=== PATIENT | female | born 1960 | race Caucasian/White ===

== ENCOUNTER 2019-02-18 21:04 | Inpatient (IN) | payer OTHER, MEDICAID ==
[~2019-02-18] VITALS: Ht 152.4 cm; Wt 51.3 kg
[2019-02-18 21:16] VITALS: BP_SYST 127
[2019-02-18 22:03] LABS: BASOPHILS % (AUTO) 0.1 % (0.0-2.0); EOSINOPHILS % (AUTO) 0.4 % (0.0-4.0); HEMATOCRIT 36.3 % (36-48); HEMOGLOBIN 11.9 g/dL (12.0-16.0); LYMPHOCYTES # (AUTO) 0.4 K/uL (1.0-5.5); LYMPHOCYTES % (AUTO) 6.2 % (20.5-51.5); MEAN CORPUSCULAR HEMOGLOBIN 28 pg (27-31); MEAN CORPUSCULAR HGB CONC 33 % (32-36); MEAN CORPUSCULAR VOLUME 85 fL (79.0-98.0); MONOCYTES # (AUTO) 0.3 K/uL (0.0-1.0); MONOCYTES % (AUTO) 4.5 % (1.7-9.3); NEUTROPHILS # (AUTO) 5.2 K/uL (1.8-7.7); NEUTROPHILS % (AUTO) 88.8 % (40.0-70.0); RED CELL DISTRIBUTION WIDTH 16.4 % (9.0-15.0); WHITE BLOOD COUNT (AUTO) 5.8 K/uL (4.8-10.8)
[2019-02-18 22:10] LABS: CALCIUM 8.9 mg/dL (8.4-11.0); CREATININE 0.71 mg/dL (0.55-1.30); POTASSIUM 4.1 mmol/L (3.5-5.1)
[2019-02-18 22:15] LABS: ALBUMIN 2.9 g/dL (3.4-4.8)
[2019-02-18 22:19] LABS: PLATELET COUNT (AUTO) 40 K/uL (130-430)
[2019-02-18] MEDS ORDERED: ONDANSETRON HCL 4 MG/2 ML VIAL IVP ONE (23:15)
[2019-02-18] MEDS ORDERED: NACL 0.9% 1,000 ML IV ONE (23:15)
[2019-02-18] MEDS ORDERED: LACTULOSE 20 GM/30 ML UDC PO ONE (23:15)
[2019-02-18] MEDS ORDERED: MORPHINE 4 MG/ML INJ. SYRINGE IVP ONE (23:15)
[2019-02-18] MEDS ORDERED: FURO-150 PO (23:42)
[2019-02-18] MEDS ORDERED: VITD2000 PO (23:42)
[2019-02-18] MEDS ORDERED: ONDA8TAB60 PO (23:42)
[2019-02-18] MEDS ORDERED: RIFA200T10 PO (23:42)
[2019-02-18] MEDS ORDERED: SPIR50TA5 PO (23:42)
[2019-02-18] MEDS ORDERED: PRO40 PO (23:42)
[2019-02-19] MEDS ORDERED: METOCLOPRAMIDE HCL 10 MG/2 ML VIAL IVP ONE
[2019-02-19] MEDS ORDERED: ACETAMINOPHEN 325 MG TABLET PO PRN (01:00)
[2019-02-19] MEDS ORDERED: ONDANSETRON HCL 4 MG/2 ML VIAL IVP PRN (01:00)
[2019-02-19 01:20] VITALS: BP_SYST 124
[2019-02-19] MEDS: 0.45% NACL 1,000 ML IV SCH ×2 (04:42→12:05)
[2019-02-19] MEDS ORDERED: LACTULOSE 20 GM/30 ML UDC PO ONE (06:00)
[2019-02-19 07:24] LABS: CALCIUM 8.1 mg/dL (8.4-11.0); CREATININE 0.54 mg/dL (0.55-1.30); POTASSIUM 3.7 mmol/L (3.5-5.1)
[2019-02-19 07:27] LABS: ALBUMIN 2.4 g/dL (3.4-4.8); TOTAL BILIRUBIN 1.7 mg/dL (0.0-1.0)
[2019-02-19 08:00] VITALS: BP_SYST 111
[2019-02-19] MEDS: RIFAXIMIN 550 MG TABLET PO SCH ×2 (09:38→20:35)
[2019-02-19] MEDS: SPIRONOLACTONE 25 MG TABLET (ALDACTONE) PO SCH (09:39)
[2019-02-19] MEDS: PANTOPRAZOLE SODIUM 40 MG/VIAL (PROTONIX) IVP SCH (09:39)
[2019-02-19] MEDS: FUROSEMIDE 20 MG TABLET PO SCH ×2 (09:39→20:35)
[2019-02-19] MEDS: cefTRIAXone 1 GM in D5W 50 ML IV SCH (10:48)
[2019-02-19 11:21] VITALS: BP_SYST 109
[2019-02-19] MEDS: LACTULOSE 20 GM/30 ML UDC PO SCH ×3 (12:04→23:20)
[2019-02-19 15:37] VITALS: BP_SYST 115
[2019-02-19 20:00] VITALS: BP_SYST 122
[2019-02-19 23:42] VITALS: BP_SYST 108
[2019-02-20 04:41] LABS: BILIRUBIN,URINE NEGATIVE (NEGATIVE); BLOOD, URINE 3+ (NEGATIVE); CLARITY/URINE CLEAR (CLEAR); COLOR,URINE YELLOW (YELLOW); GLUCOSE,URINE NEGATIVE (NEGATIVE); KETONES,URINE NEGATIVE (NEGATIVE); LEUKOCYTE ESTERASE ,URINE NEGATIVE (NEGATIVE); NITRITE, URINE NEGATIVE (NEGATIVE); PH,URINE 5.5 (5.0-8.0); PROTEIN URINE NEGATIVE (NEGATIVE); UROBILINOGEN,URINE 0.2 (0.2-1.0)
[2019-02-20 04:46] LABS: BACTERIA,URINE FEW /HPF (None Seen); WBC,URINE 0-3 /HPF (0-3)
[2019-02-20] MEDS: 0.45% NACL 1,000 ML IV SCH ×2 (05:22→10:00)
[2019-02-20] MEDS: LACTULOSE 20 GM/30 ML UDC PO SCH ×2 (05:23→12:32)
[2019-02-20 06:43] LABS: BASOPHILS % (AUTO) 0.5 % (0.0-2.0); EOSINOPHILS # (AUTO) 0.2 K/uL (0.0-0.4); EOSINOPHILS % (AUTO) 9.5 % (0.0-4.0); HEMATOCRIT 29.3 % (36-48); HEMOGLOBIN 9.8 g/dL (12.0-16.0); LYMPHOCYTES # (AUTO) 0.4 K/uL (1.0-5.5); LYMPHOCYTES % (AUTO) 18.6 % (20.5-51.5); MEAN CORPUSCULAR HEMOGLOBIN 28 pg (27-31); MEAN CORPUSCULAR HGB CONC 33 % (32-36); MEAN CORPUSCULAR VOLUME 84 fL (79.0-98.0); MONOCYTES # (AUTO) 0.2 K/uL (0.0-1.0); MONOCYTES % (AUTO) 7.5 % (1.7-9.3); NEUTROPHILS # (AUTO) 1.3 K/uL (1.8-7.7); NEUTROPHILS % (AUTO) 63.9 % (40.0-70.0)
[2019-02-20 06:53] LABS: ALBUMIN 2.2 g/dL (3.4-4.8); CREATININE 0.65 mg/dL (0.55-1.30); POTASSIUM 3.4 mmol/L (3.5-5.1); TOTAL BILIRUBIN 1.2 mg/dL (0.0-1.0)
[2019-02-20 07:02] LABS: INR 1.4 (0.8-1.2); PROTHROMBIN TIME 13.8 SECS (9.5-12.5)
[2019-02-20 07:32] LABS: PLATELET COUNT (AUTO) 27 K/uL (130-430)
[2019-02-20 08:00] VITALS: BP_SYST 103
[2019-02-20] MEDS ORDERED: POTASSIUM CHLORIDE 20 MEQ TAB.PRT.SR PO ONE (09:45)
[2019-02-20] MEDS: PANTOPRAZOLE SODIUM 40 MG/VIAL (PROTONIX) IVP SCH (09:48)
[2019-02-20] MEDS: SPIRONOLACTONE 25 MG TABLET (ALDACTONE) PO SCH (09:49)
[2019-02-20] MEDS: cefTRIAXone 1 GM in D5W 50 ML IV SCH (09:50)
[2019-02-20] MEDS: FUROSEMIDE 20 MG TABLET PO SCH (09:50)
[2019-02-20] MEDS: RIFAXIMIN 550 MG TABLET PO SCH (09:50)
[2019-02-20 11:23] VITALS: BP_SYST 113
[2019-02-20] MEDS ORDERED: MULT-1089 PO (12:16)
[2019-02-20] MEDS ORDERED: FURO-150 PO (12:16)
[2019-02-20] MEDS ORDERED: LACT10PA5 PO (12:16)
[2019-02-20] MEDS ORDERED: SPIR25TA PO (12:17)
[2019-02-20] MEDS ORDERED: RIFA550T5 PO (12:18)
[2019-02-20 15:03] VITALS: BP_SYST 103
[2019-02-20 15:35] VITALS: BP_SYST 120
== END 2019-02-20 15:45 | disposition home or self-care (01) | DRG 441 ==
LOC: SED 21:04 → STU 02-19 01:12 → SMU 02-20 10:32 → STU 02-20 12:00
PROVIDERS: ADMIT Internal Medicine; ATTEND Internal Medicine
DX: K72.90 Hepatic failure, unspecified without coma (principal); R65.11 Systemic inflammatory response syndrome (SIRS) of non-infectious origin with acute organ dysfunction; N39.0 Urinary tract infection, site not specified; R18.8 Other ascites; E44.0 Moderate protein-calorie malnutrition; K74.60 Unspecified cirrhosis of liver; D69.6 Thrombocytopenia, unspecified; D64.9 Anemia, unspecified; B19.20 Unspecified viral hepatitis C without hepatic coma; Z91.14 Patient's other noncompliance with medication regimen; Z98.891 History of uterine scar from previous surgery
CPT/HCPCS: 36415; 76700-TC; 80053; 80061; 81000-TC; 82105; 82140-TC; 83690-TC; 85025; 85610-TC; 96361; 96374; 96375; 99291; C9113; G0378; J0696; J2270; J2405; J2765; J7030; J7060

== ENCOUNTER 2019-04-09 18:40 | Inpatient (IN) | payer OTHER, MEDICAID ==
[~2019-04-09] VITALS: Ht 152.4 cm; Wt 51.9 kg
[~2019-04-09 18:40] MED LIST: FURO-150 PO; LACT10PA5 PO; MULT-1089 PO; RIFA550T5 PO; SPIR25TA PO
[2019-04-09 18:44] VITALS: BP_SYST 123
[2019-04-09 19:35] LABS: HEMATOCRIT 34.4 % (36-48); HEMOGLOBIN 11.6 g/dL (12.0-16.0); MEAN CORPUSCULAR HEMOGLOBIN 29 pg (27-31); MEAN CORPUSCULAR HGB CONC 34 % (32-36); MEAN CORPUSCULAR VOLUME 87 fL (79.0-98.0); RED BLOOD CELL COUNT(AUTO) 3.94 MIL/uL (4.2-6.2); WHITE BLOOD COUNT (AUTO) 2.7 K/uL (4.8-10.8)
[2019-04-09 19:40] LABS: ANION GAP 10 (5-15); CALCIUM 8.4 mg/dL (8.4-11.0); CHLORIDE 109 mmol/L (98-107); CREATININE 0.56 mg/dL (0.55-1.30); GLUCOSE 110 mg/dL (70-99); POTASSIUM 4.2 mmol/L (3.5-5.1); SODIUM SERUM 143 mmol/L (136-145); UREA NITROGEN, BLOOD 16 mg/dL (8-21)
[2019-04-09 19:41] LABS: GFR AFRICAN AMERICAN 142 mL/min (>90)
[2019-04-09 19:45] LABS: INR 1.3 (0.8-1.2); PROTHROMBIN TIME 13.1 SECS (9.5-12.5)
[2019-04-09 19:49] LABS: ALANINE AMINOTRANSFERASE 32 U/L (12-78); ALBUMIN 2.7 g/dL (3.4-4.8); ASPARTATE AMINOTRANSFERASE 38 U/L (10-37); TOTAL BILIRUBIN 1.2 mg/dL (0.0-1.0)
[2019-04-09 19:54] LABS: PLATELET COUNT (AUTO) 34 K/uL (130-430)
[2019-04-09 19:56] LABS: BAND % (MANUAL) 0 % (0-6); BASOPHILS % (MANUAL) 0 % (0-2); EOSINOPHILS % (MANUAL) 6 % (0-7); LYMPHOCYTES % (MANUAL) 19 % (20-46); MONOCYTES % (MANUAL) 7 % (0-11)
[2019-04-09] MEDS ORDERED: MECLIZINE HCL 25 MG TABLET (ANITVERT) PO ONE (20:00)
[2019-04-09] MEDS ORDERED: LACTULOSE 20 GM/30 ML UDC PO ONE (21:00)
[2019-04-09] MEDS ORDERED: ONDA4TAB5 PO (21:41)
[2019-04-09] MEDS ORDERED: PRO40 PO (21:41)
[2019-04-09] MEDS ORDERED: FERR140T2 PO (21:41)
[2019-04-09] MEDS ORDERED: VITD2000 PO (21:42)
[2019-04-09] MEDS ORDERED: MULT-1089 PO (21:46)
[2019-04-09] MEDS ORDERED: LACT10PA5 PO (21:46)
[2019-04-09] MEDS: LACTULOSE 20 GM/30 ML UDC PO SCH (22:16)
[2019-04-09 22:18] VITALS: BP_SYST 128
[2019-04-10] MEDS ORDERED: ONDANSETRON HCL 4 MG/2 ML VIAL IVP PRN
[2019-04-10] MEDS ORDERED: ACETAMINOPHEN 325 MG TABLET PO PRN
[2019-04-10] MEDS ORDERED: ALBUTEROL SULFATE 0.083% 2.5 MG/3 ML VIAL.NEB INH PRN
[2019-04-10] MEDS: LACTULOSE 20 GM/30 ML UDC PO SCH ×6 (02:57→21:15)
[2019-04-10 04:44] LABS: ALBUMIN 2.7 g/dL (3.4-4.8); CALCIUM 8.6 mg/dL (8.4-11.0); CREATININE 0.73 mg/dL (0.55-1.30); TOTAL BILIRUBIN 1.5 mg/dL (0.0-1.0)
[2019-04-10 04:53] LABS: BASOPHILS % (AUTO) 0.7 % (0.0-2.0); EOSINOPHILS # (AUTO) 0.1 K/uL (0.0-0.4); EOSINOPHILS % (AUTO) 5.9 % (0.0-4.0); HEMATOCRIT 33.6 % (36-48); HEMOGLOBIN 11.5 g/dL (12.0-16.0); LYMPHOCYTES # (AUTO) 0.3 K/uL (1.0-5.5); LYMPHOCYTES % (AUTO) 15.6 % (20.5-51.5); MEAN CORPUSCULAR HEMOGLOBIN 30 pg (27-31); MEAN CORPUSCULAR HGB CONC 34 % (32-36); MEAN CORPUSCULAR VOLUME 87 fL (79.0-98.0); MONOCYTES # (AUTO) 0.2 K/uL (0.0-1.0); MONOCYTES % (AUTO) 7.4 % (1.7-9.3); NEUTROPHILS # (AUTO) 1.5 K/uL (1.8-7.7); NEUTROPHILS % (AUTO) 70.4 % (40.0-70.0); RED BLOOD CELL COUNT(AUTO) 3.86 MIL/uL (4.2-6.2); WHITE BLOOD COUNT (AUTO) 2.1 K/uL (4.8-10.8)
[2019-04-10 05:02] LABS: PLATELET COUNT (AUTO) 29 K/uL (130-430)
[2019-04-10 05:16] VITALS: BP_SYST 128
[2019-04-10 07:33] VITALS: BP_SYST 113
[2019-04-10 10:55] VITALS: BP_SYST 129
[2019-04-10] MEDS ORDERED: ONDANSETRON 4 MG ODT TAB PO PRN (11:00)
[2019-04-10 15:12] VITALS: BP_SYST 110
[2019-04-10 19:00] VITALS: BP_SYST 125
[2019-04-10 20:00] VITALS: BP_SYST 125
[2019-04-10] MEDS: RIFAXIMIN 550 MG TABLET PO SCH (21:15)
[2019-04-10] MEDS: FERROUS SULFATE 140 MG TABLET.ER PO SCH (21:15)
[2019-04-11 00:14] VITALS: BP_SYST 120
[2019-04-11] MEDS: LACTULOSE 20 GM/30 ML UDC PO SCH ×6 (03:00→22:31)
[2019-04-11 06:06] LABS: ALBUMIN 2.6 g/dL (3.4-4.8); CALCIUM 8.4 mg/dL (8.4-11.0); CREATININE 0.6 mg/dL (0.55-1.30); POTASSIUM 3.9 mmol/L (3.5-5.1); TOTAL BILIRUBIN 1.3 mg/dL (0.0-1.0)
[2019-04-11 07:39] LABS: HEMATOCRIT 33.4 % (36-48); HEMOGLOBIN 11.3 g/dL (12.0-16.0); MEAN CORPUSCULAR HEMOGLOBIN 30 pg (27-31); MEAN CORPUSCULAR HGB CONC 34 % (32-36); MEAN CORPUSCULAR VOLUME 88 fL (79.0-98.0); RED BLOOD CELL COUNT(AUTO) 3.79 MIL/uL (4.2-6.2); RED CELL DISTRIBUTION WIDTH 18.1 % (9.0-15.0)
[2019-04-11 08:18] LABS: WHITE BLOOD COUNT (AUTO) 1.9 K/uL (4.8-10.8)
[2019-04-11 08:19] LABS: PLATELET COUNT (AUTO) 34 K/uL (130-430)
[2019-04-11 09:53] LABS: ATYPICAL LYMPHOCYTES % 0 % (0-0); BAND % (MANUAL) 2 % (0-6); BASOPHILS % (MANUAL) 1 % (0-2); EOSINOPHILS % (MANUAL) 8 % (0-7); LYMPHOCYTES % (MANUAL) 30 % (20-46); MONOCYTES % (MANUAL) 6 % (0-11)
[2019-04-11] MEDS: PANTOPRAZOLE SODIUM 40 MG TAB PO SCH (10:00)
[2019-04-11] MEDS: SPIRONOLACTONE 25 MG TABLET (ALDACTONE) PO SCH (10:00)
[2019-04-11] MEDS: MULTIVITAMINS TAB 1 TABLET PO SCH (10:01)
[2019-04-11] MEDS: FUROSEMIDE 20 MG TABLET PO SCH (10:01)
[2019-04-11] MEDS: CHOLECALCIFEROL (VITAMIN D3) 2,000 UNIT TABLET PO SCH (10:02)
[2019-04-11] MEDS: RIFAXIMIN 550 MG TABLET PO SCH ×2 (10:02→21:07)
[2019-04-11] MEDS: FERROUS SULFATE 140 MG TABLET.ER PO SCH ×2 (10:09→21:07)
[2019-04-11 11:15] VITALS: BP_SYST 115
[2019-04-11 15:04] VITALS: BP_SYST 111
[2019-04-11 21:04] VITALS: BP_SYST 100
[2019-04-12 00:55] VITALS: BP_SYST 109
[2019-04-12] MEDS: LACTULOSE 20 GM/30 ML UDC PO SCH ×3 (02:40→11:59)
[2019-04-12 08:00] VITALS: BP_SYST 118
[2019-04-12] MEDS: FUROSEMIDE 20 MG TABLET PO SCH (09:44)
[2019-04-12] MEDS: SPIRONOLACTONE 25 MG TABLET (ALDACTONE) PO SCH (09:44)
[2019-04-12] MEDS: FERROUS SULFATE 140 MG TABLET.ER PO SCH (09:44)
[2019-04-12] MEDS: MULTIVITAMINS TAB 1 TABLET PO SCH (09:44)
[2019-04-12] MEDS: PANTOPRAZOLE SODIUM 40 MG TAB PO SCH (09:44)
[2019-04-12] MEDS: RIFAXIMIN 550 MG TABLET PO SCH (09:45)
[2019-04-12] MEDS: CHOLECALCIFEROL (VITAMIN D3) 2,000 UNIT TABLET PO SCH (09:45)
[2019-04-12 11:26] LABS: BASOPHILS % (AUTO) 0.6 % (0.0-2.0); EOSINOPHILS # (AUTO) 0.2 K/uL (0.0-0.4); EOSINOPHILS % (AUTO) 6.9 % (0.0-4.0); HEMATOCRIT 38.3 % (36-48); HEMOGLOBIN 12.7 g/dL (12.0-16.0); LYMPHOCYTES # (AUTO) 0.4 K/uL (1.0-5.5); LYMPHOCYTES % (AUTO) 16.7 % (20.5-51.5); MEAN CORPUSCULAR HEMOGLOBIN 29 pg (27-31); MEAN CORPUSCULAR HGB CONC 33 % (32-36); MEAN CORPUSCULAR VOLUME 89 fL (79.0-98.0); MONOCYTES # (AUTO) 0.2 K/uL (0.0-1.0); MONOCYTES % (AUTO) 6.3 % (1.7-9.3); NEUTROPHILS # (AUTO) 1.8 K/uL (1.8-7.7); NEUTROPHILS % (AUTO) 69.5 % (40.0-70.0); RED BLOOD CELL COUNT(AUTO) 4.33 MIL/uL (4.2-6.2); RED CELL DISTRIBUTION WIDTH 17.9 % (9.0-15.0)
[2019-04-12 12:04] LABS: PLATELET COUNT (AUTO) 32 K/uL (130-430)
[2019-04-12 12:05] LABS: WHITE BLOOD COUNT (AUTO) 2.5 K/uL (4.8-10.8)
[2019-04-12 13:22] VITALS: BP_SYST 118
== END 2019-04-12 13:50 | disposition home or self-care (01) | DRG 441 ==
LOC: SED 18:40 → STU 21:31 → SMU 04-10 11:05
PROVIDERS: ADMIT Internal Medicine; ATTEND Internal Medicine
DX: K72.90 Hepatic failure, unspecified without coma (principal); E43 Unspecified severe protein-calorie malnutrition; D61.818 Other pancytopenia; K74.60 Unspecified cirrhosis of liver; F10.10 Alcohol abuse, uncomplicated; Z79.899 Other long term (current) drug therapy
CPT/HCPCS: 36415; 70450-TC; 71045; 76700-TC; 80053; 82140-TC; 84484; 85007; 85025; 85027; 85610-TC; 85730-TC; 93005; 99285; G0378; J8597; Q0162

== ENCOUNTER 2019-08-06 02:18 | Inpatient (IN) | payer OTHER, MEDICAID ==
[~2019-08-06] VITALS: Ht 152.4 cm; Wt 62.6 kg
[~2019-08-06 02:18] MED LIST changes: +FERR140T2 PO; +ONDA4TAB5 PO; +PRO40 PO; +VITD2000 PO
[2019-08-06 02:30] VITALS: BP_SYST 129
[2019-08-06] MEDS ORDERED: SPIR50TA5 PO (02:40)
[2019-08-06] MEDS ORDERED: PROP10TA10 PO (02:40)
[2019-08-06] MEDS ORDERED: NACL 0.9% 1,000 ML IV ONE (02:53)
[2019-08-06 03:36] LABS: BILIRUBIN,URINE NEGATIVE (NEGATIVE); BLOOD, URINE 3+ (NEGATIVE); CLARITY/URINE CLEAR (CLEAR); COLOR,URINE YELLOW (YELLOW); GLUCOSE,URINE NEGATIVE (NEGATIVE); KETONES,URINE TRACE (NEGATIVE); LEUKOCYTE ESTERASE ,URINE NEGATIVE (NEGATIVE); NITRITE, URINE NEGATIVE (NEGATIVE); PROTEIN URINE NEGATIVE (NEGATIVE)
[2019-08-06 03:37] LABS: EOSINOPHILS # (AUTO) 0.2 K/uL (0.0-0.4); LYMPHOCYTES # (AUTO) 0.5 K/uL (1.0-5.5); MEAN CORPUSCULAR HEMOGLOBIN 30 pg (27-31); MONOCYTES # (AUTO) 0.1 K/uL (0.0-1.0); NEUTROPHILS # (AUTO) 1.1 K/uL (1.8-7.7)
[2019-08-06 03:43] LABS: EOSINOPHILS % (AUTO) 9.2 % (0.0-4.0); HEMATOCRIT 38.3 % (36-48); LYMPHOCYTES % (AUTO) 23.5 % (20.5-51.5); MEAN CORPUSCULAR HGB CONC 34 % (32-36); MEAN CORPUSCULAR VOLUME 89 fL (79.0-98.0); NEUTROPHILS % (AUTO) 59.3 % (40.0-70.0)
[2019-08-06 03:46] LABS: BACTERIA,URINE FEW /HPF (None Seen); RBC,URINE 20-50 /HPF (0-3); WBC,URINE 0-3 /HPF (0-3)
[2019-08-06 03:48] LABS: CALCIUM 7.7 mg/dL (8.4-11.0); CREATININE 0.5 mg/dL (0.55-1.30); POTASSIUM 3.3 mmol/L (3.5-5.1)
[2019-08-06 03:49] LABS: WHITE BLOOD COUNT (AUTO) 1.9 K/uL (4.8-10.8)
[2019-08-06 03:50] LABS: PLATELET COUNT (AUTO) 29 K/uL (130-430)
[2019-08-06 03:53] LABS: INR 1.3 (0.8-1.2); PROTHROMBIN TIME 13.3 SECS (9.5-12.5)
[2019-08-06 03:54] LABS: TOTAL BILIRUBIN 1.3 mg/dL (0.0-1.0)
[2019-08-06] MEDS ORDERED: IOHEXOL 100 ML IV ONE (04:31)
[2019-08-06 07:54] VITALS: BP_SYST 111
[2019-08-06 08:00] VITALS: BP_SYST 111
[2019-08-06] MEDS ORDERED: ONDANSETRON HCL 4 MG/2 ML VIAL IM PRN (09:45)
[2019-08-06] MEDS ORDERED: ACETAMINOPHEN 325 MG TABLET PO PRN (09:45)
[2019-08-06] MEDS ORDERED: LACTULOSE 20 GM/30 ML UDC PO ONE (10:00)
[2019-08-06] MEDS ORDERED: FUROSEMIDE 20 MG TABLET PO ONE (10:00)
[2019-08-06] MEDS ORDERED: MULTIVITAMINS TAB 1 TABLET PO ONE (10:00)
[2019-08-06] MEDS ORDERED: SPIRONOLACTONE 25 MG TABLET (ALDACTONE) PO ONE (10:00)
[2019-08-06] MEDS ORDERED: RIFAXIMIN 550 MG TABLET PO ONE (10:00)
[2019-08-06] MEDS ORDERED: PANTOPRAZOLE SODIUM 40 MG TAB PO ONE (10:00)
[2019-08-06 12:35] VITALS: BP_SYST 112
[2019-08-06 12:35] LABS: BARBITURATE, URINE NEGATIVE (NEG <=200); BENZODIAZEPINE, URINE NEGATIVE (NEG <=150); CANNABINOID, URINE NEGATIVE (NEG <=50); COCAINE, URINE NEGATIVE (NEG <=150); METHAMPHETAMINES SCREEN,URINE NEGATIVE (NEG <=500); OPIATE, URINE NEGATIVE (NEG <=100); PHENCYCLIDINE SCREEN,URINE NEGATIVE (NEG <=25); UR TRICYCLIC ANTIDEPRESSANTS NEGATIVE (NEG <=300); URINE AMPHETAMINE NEGATIVE (NEG <=500); URINE METHADONE NEGATIVE (NEG <=200); URINE OXYCODONE SCREEN NEGATIVE (NEG <=100); URINE PROPOXYPHENE SCREEN NEGATIVE (NEG <=300)
[2019-08-06] MEDS: cefTRIAXone 1 GM in D5W 50 ML IV SCH (12:57)
[2019-08-06 16:35] VITALS: BP_SYST 96
[2019-08-06 20:00] VITALS: BP_SYST 107
[2019-08-06] MEDS: SPIRONOLACTONE 25 MG TABLET (ALDACTONE) PO SCH (20:27)
[2019-08-06] MEDS: RIFAXIMIN 550 MG TABLET PO SCH (20:27)
[2019-08-06] MEDS: LACTULOSE 20 GM/30 ML UDC PO SCH (20:27)
[2019-08-06] MEDS: FUROSEMIDE 20 MG TABLET PO SCH (20:27)
[2019-08-07 00:26] VITALS: BP_SYST 106
[2019-08-07 07:32] LABS: BASOPHILS % (AUTO) 0.7 % (0.0-2.0); EOSINOPHILS # (AUTO) 0.2 K/uL (0.0-0.4); EOSINOPHILS % (AUTO) 10.1 % (0.0-4.0); HEMATOCRIT 34.3 % (36-48); HEMOGLOBIN 11.8 g/dL (12.0-16.0); LYMPHOCYTES # (AUTO) 0.4 K/uL (1.0-5.5); MEAN CORPUSCULAR HEMOGLOBIN 31 pg (27-31); MEAN CORPUSCULAR HGB CONC 34 % (32-36); MEAN CORPUSCULAR VOLUME 89 fL (79.0-98.0); MONOCYTES # (AUTO) 0.2 K/uL (0.0-1.0); MONOCYTES % (AUTO) 8.1 % (1.7-9.3); NEUTROPHILS # (AUTO) 1.2 K/uL (1.8-7.7); NEUTROPHILS % (AUTO) 60.1 % (40.0-70.0); RED BLOOD CELL COUNT(AUTO) 3.86 MIL/uL (4.2-6.2); RED CELL DISTRIBUTION WIDTH 15.1 % (9.0-15.0)
[2019-08-07 08:08] LABS: PLATELET COUNT (AUTO) 27 K/uL (130-430)
[2019-08-07 08:09] LABS: ALBUMIN 2.6 g/dL (3.4-4.8); CALCIUM 8.1 mg/dL (8.4-11.0); CREATININE 0.43 mg/dL (0.55-1.30); POTASSIUM 3.6 mmol/L (3.5-5.1); TOTAL BILIRUBIN 1.2 mg/dL (0.0-1.0)
[2019-08-07] MEDS ORDERED: MULTIVITAMINS TAB 1 TABLET PO SCH (09:00)
[2019-08-07] MEDS ORDERED: PANTOPRAZOLE SODIUM 40 MG TAB PO SCH (09:00)
[2019-08-07] MEDS: LACTULOSE 20 GM/30 ML UDC PO SCH (09:17)
[2019-08-07] MEDS: RIFAXIMIN 550 MG TABLET PO SCH (09:18)
[2019-08-07] MEDS: SPIRONOLACTONE 25 MG TABLET (ALDACTONE) PO SCH (09:20)
[2019-08-07] MEDS: FUROSEMIDE 20 MG TABLET PO SCH (09:22)
[2019-08-07] MEDS: cefTRIAXone 1 GM in D5W 50 ML IV SCH (10:14)
[2019-08-07 12:18] VITALS: BP_SYST 110
[2019-08-07 16:31] VITALS: BP_SYST 119
[2019-08-07 17:07] VITALS: BP_SYST 123
[2019-08-07] MEDS ORDERED: LACT10SO7 PO (17:19)
== END 2019-08-07 18:00 | disposition home or self-care (01) | DRG 441 ==
LOC: SED 02:18 → STU 06:45
PROVIDERS: ADMIT Internal Medicine Hospice and Palliative Medicine; ATTEND Internal Medicine Hospice and Palliative Medicine
DX: K72.90 Hepatic failure, unspecified without coma (principal); I81 Portal vein thrombosis; B19.20 Unspecified viral hepatitis C without hepatic coma; K74.60 Unspecified cirrhosis of liver; D69.6 Thrombocytopenia, unspecified; K42.9 Umbilical hernia without obstruction or gangrene; D70.9 Neutropenia, unspecified; K63.89 Other specified diseases of intestine; Z79.899 Other long term (current) drug therapy
CPT/HCPCS: 36415; 80053; 80307; 81000-TC; 82140-TC; 83605; 83690-TC; 85025; 85044-TC; 85610-TC; 85730-TC; 87040-TC; 96360; 99285; G0378; J0696; J7050; J7060; Q9967

== ENCOUNTER 2020-04-06 20:47 | Emergency (ER) | payer OTHER, MEDICAID ==
[~2020-04-06] VITALS: Ht 142.2 cm; Wt 68.0 kg
[~2020-04-06 20:47] MED LIST changes: -LACT10PA5 PO; +LACT10SO7 PO; -ONDA4TAB5 PO; +PROP10TA10 PO; -SPIR25TA PO; +SPIR50TA5 PO
[2020-04-06 20:55] VITALS: BP_SYST 131
[2020-04-06 21:43] LABS: BASOPHILS % (AUTO) 0.7 % (0.0-2.0); EOSINOPHILS # (AUTO) 0.2 K/uL (0.0-0.4); EOSINOPHILS % (AUTO) 8.1 % (0.0-4.0); HEMATOCRIT 36.4 % (36-48); HEMOGLOBIN 12.3 g/dL (12.0-16.0); LYMPHOCYTES # (AUTO) 0.5 K/uL (1.0-5.5); LYMPHOCYTES % (AUTO) 19.9 % (20.5-51.5); MEAN CORPUSCULAR HEMOGLOBIN 30 pg (27-31); MEAN CORPUSCULAR HGB CONC 34 % (32-36); MEAN CORPUSCULAR VOLUME 88 fL (79.0-98.0); MONOCYTES # (AUTO) 0.2 K/uL (0.0-1.0); NEUTROPHILS # (AUTO) 1.7 K/uL (1.8-7.7); NEUTROPHILS % (AUTO) 64.3 % (40.0-70.0); RED BLOOD CELL COUNT(AUTO) 4.12 MIL/uL (4.2-6.2); RED CELL DISTRIBUTION WIDTH 15.6 % (9.0-15.0); WHITE BLOOD COUNT (AUTO) 2.6 K/uL (4.8-10.8)
[2020-04-06 21:58] LABS: PLATELET COUNT (AUTO) 30 K/uL (130-430)
[2020-04-06 22:03] LABS: CALCIUM 8.6 mg/dL (8.4-11.0); CREATININE 0.61 mg/dL (0.55-1.30); POTASSIUM 3.9 mmol/L (3.5-5.1)
[2020-04-06 22:13] LABS: ALBUMIN 2.9 g/dL (3.4-4.8); TOTAL BILIRUBIN 1.7 mg/dL (0.0-1.0)
--- NOTE | 2020-04-06 22:30 | NUR ---
Patient to ER bed 5 to gown for evaluation. Side rails up.
--- NOTE | 2020-04-06 23:00 | NUR ---
pt a&o x4 c/o of abnormal labs, low platelet level (28). pt had blood drawn by her primary care doctor and he told her to come to ER for platelet transfusion. pt denies nausea, vomiting, diarrhea, pain, dizziness, lightheadedness.
[2020-04-06] MEDS ORDERED: RIFA550T5 PO (23:02)
[2020-04-06] MEDS ORDERED: FERR-69 PO (23:02)
[2020-04-06] MEDS ORDERED: CHOL500013 PO (23:02)
[2020-04-06] MEDS ORDERED: FURO20TA4 PO (23:02)
[2020-04-06] MEDS ORDERED: LACT10SO7 PO (23:02)
[2020-04-06] MEDS ORDERED: SPIR50TA5 PO (23:02)
--- NOTE | 2020-04-06 23:02 | NUR ---
ER Dr. GARCIA at bedside examining patient.
--- NOTE | 2020-04-06 23:03 | NUR ---
Medication reconciliation completed with information provided by PATIENT. Any prior medication reconciliation on file was reviewed and corrected.
--- NOTE | 2020-04-06 23:37 | NUR ---
DR. GARCIA ON PHONE WITH PTS GI DOC, DR. RODRIGUEZ.
[2020-04-07 00:13] VITALS: BP_SYST 123
--- NOTE | 2020-04-07 00:13 | NUR ---
Patient given written and verbal discharge instructions and verbalizes understanding. ER MD discussed with patient the results and treatment provided. Patient in stable condition. ID arm band removed. No Rx given. Patient educated on pain management and to follow up with PMD. Pain Scale 0/10. Opportunity for questions provided and answered. Medication side effect fact sheet provided.
== END 2020-04-07 00:13 | disposition home or self-care (01) ==
LOC: SED 20:47
DX: K74.60 Unspecified cirrhosis of liver (principal); Z79.899 Other long term (current) drug therapy; Z86.19 Personal history of other infectious and parasitic diseases
CPT/HCPCS: 36415; 80053; 85025; 99282

== ENCOUNTER 2020-05-06 18:07 | Emergency (ER) | payer OTHER, MEDICAID ==
[~2020-05-06] VITALS: Ht 142.2 cm; Wt 75.3 kg
[~2020-05-06 18:07] MED LIST changes: +CHOL500013 PO; +FERR-69 PO; +FURO20TA4 PO
[2020-05-06 18:19] VITALS: BP_SYST 130
[2020-05-06] MEDS ORDERED: NACL 0.9% 1,000 ML IV ONE (18:36)
[2020-05-06] MEDS ORDERED: PROCHLORPERAZINE EDISYLATE 10 MG/2 ML VIAL IVP ONE (18:45)
[2020-05-06 19:06] LABS: BLOOD, URINE 3+ (NEGATIVE); GLUCOSE,URINE NEGATIVE (NEGATIVE); KETONES,URINE 1+ (NEGATIVE); LEUKOCYTE ESTERASE ,URINE NEGATIVE (NEGATIVE); NITRITE, URINE NEGATIVE (NEGATIVE); PH,URINE 5.5 (5.0-8.0); PROTEIN URINE NEGATIVE (NEGATIVE)
[2020-05-06 19:16] LABS: HEMATOCRIT 37.7 % (36-48); HEMOGLOBIN 12.8 g/dL (12.0-16.0); MEAN CORPUSCULAR HEMOGLOBIN 30 pg (27-31); MEAN CORPUSCULAR HGB CONC 34 % (32-36); MEAN CORPUSCULAR VOLUME 89 fL (79.0-98.0); RED BLOOD CELL COUNT(AUTO) 4.23 MIL/uL (4.2-6.2); RED CELL DISTRIBUTION WIDTH 15.4 % (9.0-15.0); WHITE BLOOD COUNT (AUTO) 2.1 K/uL (4.8-10.8)
[2020-05-06 19:17] LABS: BILIRUBIN,URINE NEGATIVE (NEGATIVE); CLARITY/URINE HAZY (CLEAR); COLOR,URINE AMBER (YELLOW)
[2020-05-06 19:18] LABS: BACTERIA,URINE FEW /HPF (None Seen); RBC,URINE 0-3 /HPF (0-3); WBC,URINE 0-3 /HPF (0-3)
[2020-05-06 19:19] LABS: MUCUS,URINE None Seen /LPF (None Seen)
[2020-05-06 19:21] LABS: CALCIUM 8.6 mg/dL (8.4-11.0); CREATININE 0.57 mg/dL (0.55-1.30); POTASSIUM 4.1 mmol/L (3.5-5.1)
[2020-05-06 19:27] LABS: ALBUMIN 3.2 g/dL (3.4-4.8); PLATELET COUNT (AUTO) 26 K/uL (130-430); TOTAL BILIRUBIN 3.1 mg/dL (0.0-1.0)
[2020-05-06 19:29] LABS: BAND % (MANUAL) 0 % (0-6); LYMPHOCYTES % (MANUAL) 26 % (20-46); MONOCYTES % (MANUAL) 7 % (0-11)
[2020-05-06 19:30] LABS: BASOPHILS % (MANUAL) 0 % (0-2); EOSINOPHILS % (MANUAL) 5 % (0-7)
[2020-05-06 20:26] VITALS: BP_SYST 118
== END 2020-05-06 20:26 | disposition home or self-care (01) ==
LOC: SED 18:07
DX: R11.2 Nausea with vomiting, unspecified (principal); K74.60 Unspecified cirrhosis of liver; Z79.899 Other long term (current) drug therapy
CPT/HCPCS: 36415; 74176; 80053; 81000; 82962; 83690; 85007; 85027; 96361; 96374; 99284; J0780; J7030

== ENCOUNTER 2021-06-05 13:54 | Inpatient (IN) | payer OTHER, MEDICAID, SELFPAY ==
[~2021-06-05] VITALS: Ht 149.9 cm; Wt 57.2 kg
--- NOTE | 2021-06-05 14:06 | NUR ---
PT COMES TO ER WITH C/O VOMTTING X 5 DAYS, INTERMITTENT AND WORSENING. DENIES ANY FEVERS/CHILLS/DIARRHEA. REPORTS HAVING ACID REFLUX, WAS ON ZOFRAN BUT NOT HELPING. DENIES CHEST PAIN. PT IN NAD. RESP EVEN AND UNLABORES, ON RA @99%. PT STATES UNABLE TO HOLD FLUIDS AT THIS TIME, DRINKING GATORADE.
[2021-06-05 14:08] VITALS: BP_SYST 125
--- NOTE | 2021-06-05 14:13 | NUR ---
DR SALDANA I ROOM FOR EXAM
[2021-06-05] MEDS ORDERED: BARIUM SULFATE 135 ML SUSP.RECON (E-Z-HD) PO ONE (14:39)
[2021-06-05] MEDS ORDERED: ONDANSETRON HCL 4 MG/2 ML VIAL ONE (14:47)
[2021-06-05 20:00] VITALS: BP_SYST 126
[2021-06-06] MEDS ORDERED: MORPHINE 2 MG/ML INJ. SYRINGE ONE (03:25)
[2021-06-06] MEDS: NACL 0.9% 1,000 ML IV SCH ×3 (04:15→21:03)
[2021-06-06] MEDS ORDERED: cefTRIAXone 1 GM IVPB PREMIX 50 ML IV ONE ×2 (04:15→05:45)
[2021-06-06] MEDS ORDERED: ACETAMINOPHEN 325 MG TABLET PO PRN (04:15)
[2021-06-06] MEDS ORDERED: ONDANSETRON HCL 4 MG/2 ML VIAL IVP PRN (04:15)
--- NOTE | 2021-06-06 05:08 | NUR ---
CONSULTATION PAGED/CALLED Reason for Consultation: Esophageal Obstruction Person Who was Notified: Spoke with Stephanie From Dr Yeboah exchange Consulting Physician: Dr Garcia is construction millwright for Dr Yeboah Data Visualization Developer Specialty: GI Ordering Physician: Gaetano Patel
--- NOTE | 2021-06-06 06:30 | NUR ---
pt.assessed.pt.presented quiescent affect calm somnolent.2/t downtime pt 's forms;admission/interventions were not available to access;note until;0400a. @approximately 0300a pt.had c/o pain. was paged.i apprised of the pt's status ordered morphine;2mg ivp q-4hrs/prn pain.i could not access the emar 2/t downtime@0330a to note administration of the pain medication; i noted administration per medication sheet.jonnathan/chg co-signed the medication;also co-singed over ride w/in pyxis;2/t pt.not included in the mst pt.list.the downtime prevented me from completing the admission process w alacrity. 2/t downtime day shift nsg unable to initiate the noting.i was to f/u w noting.
[2021-06-06] MEDS: MORPHINE 2 MG/ML INJ. SYRINGE IVP PRN ×2 (06:38→21:31)
[2021-06-06 07:08] LABS: ALBUMIN 2.7 g/dL (3.4-4.8); CALCIUM 7.9 mg/dL (8.4-11.0); CREATININE 0.49 mg/dL (0.55-1.30); POTASSIUM 3.4 mmol/L (3.5-5.1); TOTAL BILIRUBIN 2.6 mg/dL (0.0-1.0)
[2021-06-06 07:39] LABS: BASOPHILS % (AUTO) 0.6 % (0.0-2.0); EOSINOPHILS # (AUTO) 0.1 K/uL (0.0-0.4); EOSINOPHILS % (AUTO) 5.6 % (0.0-4.0); HEMATOCRIT 31.9 % (36-48); LYMPHOCYTES # (AUTO) 0.3 K/uL (1.0-5.5); LYMPHOCYTES % (AUTO) 19.9 % (20.5-51.5); MEAN CORPUSCULAR HEMOGLOBIN 30 pg (27-31); MEAN CORPUSCULAR HGB CONC 35 % (32-36); MEAN CORPUSCULAR VOLUME 88 fL (79.0-98.0); MONOCYTES # (AUTO) 0.1 K/uL (0.0-1.0); MONOCYTES % (AUTO) 5.8 % (1.7-9.3); NEUTROPHILS # (AUTO) 1.2 K/uL (1.8-7.7); RED BLOOD CELL COUNT(AUTO) 3.64 MIL/uL (4.2-6.2); RED CELL DISTRIBUTION WIDTH 15.3 % (9.0-15.0)
--- NOTE | 2021-06-06 07:45 | NUR ---
Opening note Patient is sitting up in bed A&O x4, bengali speaking. no complaint of pain or discomfort. No signs or symptoms of respiratory distress, IV is patent no signs or symptoms of infiltration. Educated on plan of care, patient verbalized understanding. Bed is in lowest position call light within reach, fall and aspiration precautions are in place. Will continue to monitor.
[2021-06-06 08:00] VITALS: BP_SYST 99
[2021-06-06 08:31] LABS: PLATELET COUNT (AUTO) 27 K/uL (130-430); WHITE BLOOD COUNT (AUTO) 1.7 K/uL (4.8-10.8)
[2021-06-06] MEDS: PANTOPRAZOLE SODIUM 40 MG/VIAL (PROTONIX) IVP SCH (09:19)
--- NOTE | 2021-06-06 09:54 | NUR ---
Nutrition Update Alejandro Scale 17 noted. Pt admitted for esophageal obstruction. Diet: NPO BMI: 25.5 kg/m2 RD to follow per nutrition care standards.
[2021-06-06 11:48] LABS: INR 1.4 (0.8-1.2); PROTHROMBIN TIME 14.5 SECS (9.5-12.5)
[2021-06-06 12:33] VITALS: BP_SYST 104
[2021-06-06 14:11] LABS: NEUTROPHILS % (AUTO) 68.1 % (40.0-70.0)
[2021-06-06 15:38] LABS: HEMATOCRIT 41.1 % (36-48); HEMOGLOBIN 13.7 g/dL (12.0-16.0); MEAN CORPUSCULAR HEMOGLOBIN 27 pg (27-31); MEAN CORPUSCULAR VOLUME 82 fL (79.0-98.0); RED BLOOD CELL COUNT(AUTO) 5.01 MIL/uL (4.2-6.2)
[2021-06-06 15:39] LABS: MEAN CORPUSCULAR HGB CONC 33 % (32-36); PLATELET COUNT (AUTO) 228 K/uL (130-430); RED CELL DISTRIBUTION WIDTH 14.2 % (9.0-15.0)
[2021-06-06 15:40] LABS: BASOPHILS % (AUTO) 0.7 % (0.0-2.0); EOSINOPHILS % (AUTO) 1.6 % (0.0-4.0); LYMPHOCYTES # (AUTO) 1.7 K/uL (1.0-5.5); LYMPHOCYTES % (AUTO) 32.9 % (20.5-51.5); MONOCYTES % (AUTO) 12.2 % (1.7-9.3); NEUTROPHILS # (AUTO) 2.7 K/uL (1.8-7.7); NEUTROPHILS % (AUTO) 52.6 % (40.0-70.0)
[2021-06-06 15:41] LABS: EOSINOPHILS # (AUTO) 0.1 K/uL (0.0-0.4); MONOCYTES # (AUTO) 0.6 K/uL (0.0-1.0); WHITE BLOOD COUNT (AUTO) 5.1 K/uL (4.8-10.8)
[2021-06-06 15:43] LABS: ALBUMIN 3.5 g/dL (3.4-4.8); BILIRUBIN,DIRECT 0.9 mg/dL (0.0-0.3); CALCIUM 8.8 mg/dL (8.4-11.0); CREATININE 0.69 mg/dL (0.55-1.30); POTASSIUM 3.5 mmol/L (3.5-5.1); TOTAL BILIRUBIN 3.4 mg/dL (0.0-1.0)
[2021-06-06 16:27] VITALS: BP_SYST 110
--- NOTE | 2021-06-06 16:31 | NUR ---
Wound Evaluation: Wound Consult ordered for Low Alejandro Score. Patient evaluated for a low Alejandro score of 17 (NPO status). Patient was awake, alert, oriented and received in a Ookala Bed with an IsoFlex RACHEAL mattress. Patient is able to turn in bed independently. Skin is intact. Recommend encourage and assist patient as needed with repositioning every 2 hours with pillow support. Elevate, off-load and float bilateral heels with pillows. Perform skin care and monitor skin integrity Q shift.
--- NOTE | 2021-06-06 18:20 | NUR ---
RN Note Amisha i scomplaining of pain at the IV site. Will assess and insert a new one.
--- NOTE | 2021-06-06 18:43 | NUR ---
Closing note Patient is sitting up in bed A&O x4, khmer speaking. no complaint of pain or discomfort. No signs or symptoms of respiratory distress, IV is patent no signs or symptoms of infiltration. All needs were met. Bed is in lowest position call light within reach, fall and aspiration precautions are in place. Will endorse report to stone setter.
[2021-06-06 19:45] VITALS: BP_SYST 115
--- NOTE | 2021-06-06 19:45 | NUR ---
INITIAL NOTE AT INITIAL ASSESSMENT, PATIENT IS RESTING IN BED, STABLE, NO SIGNS OF RESPIRATORY DISTRESS. PATIENT VERBALIZES TOLERABLE PAIN. PLAN OF CARE FOR THE EVENING IS COMMUNICATED WITH THE PATIENT. PATIENT DEMONSTRATES CORRECT USAGE OF CALL LIGHT AT THIS TIME. BED IS LOCKED, ALARMED, AND AT THE LOWEST LEVEL. FALL SAFETY EDUCATION PROVIDED. FALL, SAFETY, AND RESPIRATORY PRECAUTIONS WILL BE TAKEN THROUGHOUT THE SHIFT.
--- NOTE | 2021-06-06 21:31 | NUR ---
PAIN NOTE PATIENT IS COMPLAINING OF SEVERE HEADACHE PAIN, PRN MEDICATION IS GIVEN AT THIS TIME FOR PATIENTS PAIN COMPLAINT PER MD ORDERS. WILL REASSESS IF PRN MEDICATION GIVEN WAS EFFECTIVE. CALL LIGHT PLACED WITHIN REACH. BED IS LOCKED, ALARMED, AND AT THE LOWEST LEVEL.
[2021-06-07] VITALS (8 sets, daily range): BP systolic 85–124
--- NOTE | 2021-06-07 06:39 | NUR ---
CLOSING NOTE PATIENT DID NOT HAVE ANY ESOPHAGEAL PAIN DURING THE NIGHT, SHE STATED THAT PRN MEDICATION GIVEN TO HER FOR HER HEADACHE WAS EFFECTIVE. PATIENT SLEPT WELL THROUGHOUT THE SHIFT, NO SHORTNESS OF BREATH NOTED. AT THIS TIME, PATIENT IS RESTING IN BED, STABLE, NO SIGNS OF RESPIRATORY DISTRESS. CALL LIGHT IS WITHIN REACH. BED IS LOCKED, ALARMED, AND AT THE LOWEST LEVEL. FALL, SAFETY, AND RESPIRATORY PRECAUTIONS HAVE BEEN TAKEN THROUGHOUT THE SHIFT. WILL CONTINUE TO MONITOR UNTIL SHIFT REPORT IS GIVEN AT BEDSIDE TO AM NURSE.
[2021-06-07] MEDS: fentaNYL CITRATE/PF 100 MCG/2 ML AMP ONE ×2 (08:28→08:38)
[2021-06-07] MEDS: MIDAZOLAM HCL 5 MG/5 ML VIAL ONE ×3 (08:28→08:36)
[2021-06-07] MEDS: PROPRANOLOL HCL 10 MG TABLET (INDERAL) PO SCH (09:00)
[2021-06-07] MEDS: NACL 0.9% 1,000 ML IV SCH (10:15)
--- NOTE | 2021-06-07 10:34 | NUR ---
CONSULTATION PAGED REASON FOR CONSULTATION:ELEVATED WBC WAS CONSULT CALLED?Y PERSON WHO WAS NOTIFIED:MAME CONSULTING PHYSICIAN:DOC MUJICA CALENDERER SPECIALTY:HEMATOLOGY/GLAZIER STAINED GLASS PHONE NUMBER:[phone] REQUESTING PHYSICIAN:CARMINE GRIFFITH
[2021-06-07] MEDS: PANTOPRAZOLE SODIUM 40 MG/VIAL (PROTONIX) IVP SCH (11:42)
[2021-06-07 12:56] LABS: HEMATOCRIT 32.7 % (36-48); HEMOGLOBIN 11.4 g/dL (12.0-16.0); MEAN CORPUSCULAR HEMOGLOBIN 31 pg (27-31); MEAN CORPUSCULAR HGB CONC 35 % (32-36); MEAN CORPUSCULAR VOLUME 89 fL (79.0-98.0); RED BLOOD CELL COUNT(AUTO) 3.69 MIL/uL (4.2-6.2); RED CELL DISTRIBUTION WIDTH 15.6 % (9.0-15.0); WHITE BLOOD COUNT (AUTO) 4.2 K/uL (4.8-10.8)
[2021-06-07 13:14] LABS: PLATELET COUNT (AUTO) 40 K/uL (130-430)
[2021-06-07 14:09] LABS: BASOPHILS % (MANUAL) 0 % (0-2); EOSINOPHILS % (MANUAL) 6 % (0-7); LYMPHOCYTES % (MANUAL) 28 % (20-46); MONOCYTES % (MANUAL) 4 % (0-11)
--- NOTE | 2021-06-07 17:33 | NUR ---
Dietitian Recommendations * Recommend continuing GI soft diet. * Encourage PO intake. LP, RD Please refer to Nutrition Assessment for details. Addendum: 06/07/21 at 1734 by Heather AMAYA Amended: Links added.
--- NOTE | 2021-06-07 18:00 | NUR ---
ASSESSMENT UNCHANGED WITH EXCEPTION PATIENT ABLE TO TAKE FOOD AND LIQ'S WITH OUT DIFFICULTY. PATIENT SENT TO [facility] THIS AM. RESULTS SHOWED OBSTRUCTION OF ESOPHAGEUS FROM SOME FOOD. ABLE TO DISLODGE FOOD AND PATIENT ABLE TO FOLLOW WELL AFTER PROCEDURE. VSS AFEBRILE STARTED ON NEW MEDICATION INDERAL DISCHARGE INSTRUCTIONS GIVEN TO SON WHO SHE LIVES WITH. ESPECIALLY INSTRUCTED ON NEW MEDICATION AND TO FOLLOW UP WITH HER PRIMARY DOCTOR AND GI DOCTOR ONCE DISCHARGE WITH IN 5 TO 10 DAY'S INSTRUCTED MEDICATION RECONCILIATION COMPLETED AND CAN GO TO PATIENT'S PERSONAL PHARMACY FOR MEDICATION PRESCRIPTIONS. ANSWERED ALL SON'S QUESTIONS AND PATIENT'S QUESTION'S. PATIENT UP SEVERAL TIMES AMBULATING TO TOILET WITH OUT DIFFICULTLY. INSTRUCTED TO FAMILY PATIENT UNSAFE TO DRIVE HER SELF HOME DUE TO SEDATION GIVEN IN PROCEDURE. PATIENT GOING HOME WITH SON OTHER FAMILY MEMBER PICKING PATIENT'S CAR UP. PATIENT DROVE SELF TO HOSPITAL. PATIENT HAVING SEVERAL LOOSE STOOLS TODAY. WILL RESUME LACTULOSE AT HOME FOR CIRRHOSIS.
== END 2021-06-07 18:35 | disposition home or self-care (01) | DRG 394 ==
LOC: SED 13:54 → SMU 18:00
PROVIDERS: ADMIT Internal Medicine Hospice and Palliative Medicine; ATTEND Internal Medicine Hospice and Palliative Medicine
PROC: 0DB68ZX Excision of Stomach, Via Natural or Artificial Opening Endoscopic, Diagnostic (ICD-10-PCS; 2021-06-07)
PROC: 0DC58ZZ Extirpation of Matter from Esophagus, Via Natural or Artificial Opening Endoscopic (ICD-10-PCS; principal; 2021-06-07 08:25)
DX: T18.108A Unspecified foreign body in esophagus causing other injury, initial encounter (principal); D61.818 Other pancytopenia; K92.2 Gastrointestinal hemorrhage, unspecified; K22.2 Esophageal obstruction; I10 Essential (primary) hypertension; D72.819 Decreased white blood cell count, unspecified; X58.XXXA Exposure to other specified factors, initial encounter; D69.6 Thrombocytopenia, unspecified; K31.9 Disease of stomach and duodenum, unspecified; K74.60 Unspecified cirrhosis of liver; Y93.89 Activity, other specified; Y92.89 Other specified places as the place of occurrence of the external cause; Y99.8 Other external cause status
CPT/HCPCS: 36415; 43247; 71045; 74220-TC; 76700-TC; 80053; 82248; 83605; 84484; 85007; 85025; 85027; 85610-TC; 87081; 87086; 88305; 88312; 88313; 93005; 99285; C9113; J0696; J2250; J2270; J2405; J3010

== ENCOUNTER 2021-07-04 12:31 | Inpatient (IN) | payer OTHER, MEDICAID, SELFPAY ==
[~2021-07-04] VITALS: Ht 149.9 cm; Wt 50.3 kg
[2021-07-04 12:35] VITALS: BP_SYST 133
--- NOTE | 2021-07-04 12:35 | NUR ---
Patient triaged and placed in waiting room. VSS and patient appears in no acute distress at this time. Accompanied by FAMILY, awaiting available bed, and MD notified of need for MSE.
--- NOTE | 2021-07-04 14:20 | NUR ---
DR RIVERA OUT TO TRIAGE ROOM FOR EVALUATION
[2021-07-04 14:38] LABS: MEAN CORPUSCULAR HEMOGLOBIN 30 pg (27-31); WHITE BLOOD COUNT (AUTO) 3.5 K/uL (4.8-10.8)
[2021-07-04 14:49] LABS: CALCIUM 9.2 mg/dL (8.4-11.0); CREATININE 0.7 mg/dL (0.55-1.30)
[2021-07-04 14:50] LABS: BASOPHILS % (AUTO) 0.7 % (0.0-2.0); EOSINOPHILS # (AUTO) 0.1 K/uL (0.0-0.4); EOSINOPHILS % (AUTO) 3.5 % (0.0-4.0); HEMATOCRIT 38.3 % (36-48); HEMOGLOBIN 13.3 g/dL (12.0-16.0); LYMPHOCYTES # (AUTO) 0.4 K/uL (1.0-5.5); LYMPHOCYTES % (AUTO) 10.9 % (20.5-51.5); MEAN CORPUSCULAR HGB CONC 35 % (32-36); MEAN CORPUSCULAR VOLUME 86 fL (79.0-98.0); MONOCYTES # (AUTO) 0.2 K/uL (0.0-1.0); MONOCYTES % (AUTO) 4.8 % (1.7-9.3); NEUTROPHILS # (AUTO) 2.8 K/uL (1.8-7.7); NEUTROPHILS % (AUTO) 80.1 % (40.0-70.0); RED BLOOD CELL COUNT(AUTO) 4.44 MIL/uL (4.2-6.2); RED CELL DISTRIBUTION WIDTH 15.5 % (9.0-15.0)
[2021-07-04 14:54] LABS: ALBUMIN 3.4 g/dL (3.4-4.8); INR 1.2 (0.8-1.2); PROTHROMBIN TIME 12.7 SECS (9.5-12.5); TOTAL BILIRUBIN 2.4 mg/dL (0.0-1.0)
--- NOTE | 2021-07-04 15:00 | NUR ---
BROUGHT BACK TO BED #7 WITH FAMILY, REPORT GIVEN TO JANNET
[2021-07-04 15:05] LABS: PLATELET COUNT (AUTO) 38 K/uL (130-430)
--- NOTE | 2021-07-04 15:05 | NUR ---
PT BIB DAUGHTER FOR INCREASED CONFUSION AND RECOGNIZED SYMPTOMS OF HIGH AMMONIA. PT HAS A HX OF LIVER CIRRHOSIS SECONDARY TO HEP C CONTRACTED DURING A BLOOD TRANSFUSION WHILE . PT IS CALM AND COOPERATIVE, SOME CONFUSION, AAOX3, AMBULATORY, V/S STABLE
--- NOTE | 2021-07-04 15:15 | NUR ---
Faxed signed Medical Release Form to [facility].
--- NOTE | 2021-07-04 15:21 | NUR ---
COVID SWAB AND SENT TO LAB
--- NOTE | 2021-07-04 15:39 | NUR ---
PT AMBULATES TO BATHROOM WITH STEADY GAIT TO PROVIDE URINE SAMPLE
--- NOTE | 2021-07-04 16:18 | NUR ---
PT SLEEPING IN GURNEY, EASILY ARROUSABLE TO VOICE, EVEN UNLABORED RESPIRATIONS, NO DISTRESS NOTED
[2021-07-04 16:29] LABS: BILIRUBIN,URINE NEGATIVE (NEGATIVE); BLOOD, URINE 3+ (NEGATIVE); COLOR,URINE YELLOW (YELLOW); GLUCOSE,URINE NEGATIVE (NEGATIVE); KETONES,URINE TRACE (NEGATIVE); LEUKOCYTE ESTERASE ,URINE NEGATIVE (NEGATIVE); NITRITE, URINE NEGATIVE (NEGATIVE); PROTEIN URINE NEGATIVE (NEGATIVE); UROBILINOGEN,URINE 0.2 (0.2-1.0)
[2021-07-04 16:33] LABS: CLARITY/URINE HAZY (CLEAR)
[2021-07-04 16:41] LABS: BACTERIA,URINE FEW /HPF (None Seen); MUCUS,URINE None Seen /LPF (None Seen); WBC,URINE 0-3 /HPF (0-3)
--- NOTE | 2021-07-04 18:15 | NUR ---
DINNER TRAY PROVIDED TO PT
[2021-07-04] MEDS ORDERED: LACTULOSE 20 GM/30 ML UDC PO ONE (18:30)
--- NOTE | 2021-07-04 19:11 | NUR ---
REPORT GIVEN TO LEXUS BOSS FOR CONTINUING CARE
--- NOTE | 2021-07-04 20:22 | NUR ---
VSS no s/s of acute distress, pt walked to and from restroom with min assist, well tolerated
--- NOTE | 2021-07-04 21:30 | NUR ---
ADMISSION NOTE Received patient from ER via geovani, received report from LEXUS BOSS. Patient admitted with diagnosis of HEPATIC ENCEPHALOPATHY. Patient oriented to hospital routine, call light, toileting and safety-patient verbalized understanding.
--- NOTE | 2021-07-04 21:30 | NUR ---
Note félix in EDM - 07/04/21 at 2233 by DEX Patient will be admitted to care of Dr. Swann. Admitted to Tele unit. Will go to room 121C. Belongings list completed. Complete and up to date summary report printed. SBAR report to be given at bedside with opportunity for questions.
--- NOTE | 2021-07-04 21:30 | NUR ---
Transfer to Tele via ACLS protocol. Licensed nurse present. IV present no signs or symptoms of infiltration.
[2021-07-04 21:43] VITALS: BP_SYST 125
--- NOTE | 2021-07-04 22:35 | NUR ---
Bathroom Pt ambulated to bathroom, steady gait. Pt voided. Warm blanket provided. Call light within reach. Safety maintained. To monitor.
[2021-07-05 00:32] VITALS: BP_SYST 113
--- NOTE | 2021-07-05 05:50 | NUR ---
Closing notes Pt asleep, easily awakens, no s/s distress noted. IV saline lock L. AC clear and patent. Call light within reach. Bed low, locked, siderails up x2, alarm on. To endorse to AM nurse.
[2021-07-05 08:04] LABS: BASOPHILS % (AUTO) 0.5 % (0.0-2.0); EOSINOPHILS # (AUTO) 0.1 K/uL (0.0-0.4); HEMATOCRIT 31.2 % (36-48); HEMOGLOBIN 10.9 g/dL (12.0-16.0); LYMPHOCYTES # (AUTO) 0.4 K/uL (1.0-5.5); LYMPHOCYTES % (AUTO) 18.5 % (20.5-51.5); MEAN CORPUSCULAR HEMOGLOBIN 30 pg (27-31); MEAN CORPUSCULAR HGB CONC 35 % (32-36); MEAN CORPUSCULAR VOLUME 86 fL (79.0-98.0); MONOCYTES # (AUTO) 0.2 K/uL (0.0-1.0); MONOCYTES % (AUTO) 7.4 % (1.7-9.3); NEUTROPHILS # (AUTO) 1.6 K/uL (1.8-7.7); NEUTROPHILS % (AUTO) 67.6 % (40.0-70.0); RED BLOOD CELL COUNT(AUTO) 3.61 MIL/uL (4.2-6.2); RED CELL DISTRIBUTION WIDTH 15.2 % (9.0-15.0); WHITE BLOOD COUNT (AUTO) 2.4 K/uL (4.8-10.8)
[2021-07-05 08:54] LABS: CALCIUM 8.1 mg/dL (8.4-11.0); CREATININE 0.57 mg/dL (0.55-1.30); POTASSIUM 3.8 mmol/L (3.5-5.1)
[2021-07-05] MEDS ORDERED: LACTULOSE 20 GM/30 ML UDC PO SCH (09:00)
[2021-07-05 10:13] LABS: PLATELET COUNT (AUTO) 26 K/uL (130-430)
--- NOTE | 2021-07-05 10:18 | NUR ---
critical lab informed RN of critical lab Platelets 26k
[2021-07-05 12:56] VITALS: BP_SYST 107
[2021-07-05] MEDS: LACTULOSE 20 GM/30 ML UDC PO SCH ×3 (13:00→20:28)
[2021-07-05 16:28] VITALS: BP_SYST 110
--- NOTE | 2021-07-05 19:15 | NUR ---
OPENING NOTE REPORT RECEIVED FROM DAYSHIFT NURSE. PATIENT RECEIVED LYING IN BED, AWAKE, NO S/S OF ACUTE DISTRESS, PATIENT DENIES PAIN. BREATHING EVEN AND UNLABORED. IV SITE IS PATENT, NO SIGNS OF INFILTRATION OR INFECTION NOTED. CALL LIGHT WITH PATIENT. INSTRUCTED TO CALL FOR ANY ASSISTANCE, PATIENT VERBALIZED UNDERSTANDING. BED IS LOCKED AND AT LOWEST POSITION. WILL CONTINUE TO MONITOR.
[2021-07-05 20:00] VITALS: BP_SYST 121
[2021-07-05] MEDS: RIFAXIMIN 550 MG TABLET PO SCH (20:28)
--- NOTE | 2021-07-06 | NUR ---
ROUNDS PATIENT IN BED, SLEEPING COMFORTABLY. NO SIGNS OF DISCOMFORT. WILL CONTINUE TO MONITOR.
[2021-07-06 00:53] VITALS: BP_SYST 118
--- NOTE | 2021-07-06 06:11 | NUR ---
CLOSING NOTE PATIENT IN BED, SLEEPING. NO S/S OF ACUTE DISTRESS. BREATHING EVEN AND UNLABORED. IV SITE PATENT, NO SIGNS OF INFILTRATION OR INFECTION NOTED. ALL NEEDS MET THROUGHOUT SHIFT. FALL, SAFETY PRECAUTIONS MAINTAINED THROUGHOUT SHIFT. WILL CONTINUE TO MONITOR UNTIL PATIENT CARE IS ENDORSED TO ONCOMING DAYSHIFT NURSE.
[2021-07-06] MEDS: LACTULOSE 20 GM/30 ML UDC PO SCH ×4 (08:58→20:48)
[2021-07-06] MEDS: RIFAXIMIN 550 MG TABLET PO SCH ×2 (09:00→20:48)
[2021-07-06] MEDS: MULTIVITAMINS TAB 1 TABLET PO SCH (09:02)
[2021-07-06] MEDS: SPIRONOLACTONE 50 MG TABLET (ALDACTONE) PO SCH (09:02)
[2021-07-06] MEDS: PANTOPRAZOLE SODIUM 40 MG TAB PO SCH (09:02)
[2021-07-06] MEDS: PROPRANOLOL HCL 10 MG TABLET (INDERAL) PO SCH (09:03)
[2021-07-06] MEDS: FUROSEMIDE 20 MG TABLET PO SCH (09:04)
[2021-07-06 12:00] VITALS: BP_SYST 120
[2021-07-06 16:15] VITALS: BP_SYST 119
--- NOTE | 2021-07-06 19:15 | NUR ---
OPENING NOTE REPORT RECEIVED FROM DAYSHIFT NURSE. PATIENT RECEIVED LYING IN BED, AWAKE, NO S/S OF ACUTE DISTRESS, DENIES PAIN. BREATHING EVEN AND UNLABORED. IV SITE PATENT, NO SIGNS OF INFILTRATION OR INFECTION NOTED. CALL LIGHT WITH PATIENT. BED IS LOCKED AND AT LOWEST POSITION. WILL CONTINUE TO MONITOR.
[2021-07-06 20:00] VITALS: BP_SYST 102
--- NOTE | 2021-07-07 00:01 | NUR ---
ROUNDS PATIENT IN BED SLEEPING COMFORTABLY. NO SIGNS OF DISCOMFORT NOTED. CHEST RISE AND FALL EVEN BILATERALLY. WILL CONTINUE TO MONITOR.
[2021-07-07 00:29] VITALS: BP_SYST 104
--- NOTE | 2021-07-07 01:42 | NUR ---
Consultation Paged Reason for Consultation: low platelets Was consult called: Y Person who was notified: Isa Consulting Physician: Dr. Mercado Ordering Physician: Dr. Tan
--- NOTE | 2021-07-07 04:50 | NUR ---
Consultation Paged Reason for Consultation: elevated t bili Was consult called: Y Person who was notified: Leeanne Consulting Physician: Dr. Mccall Ordering Physician: Dr. Tan
--- NOTE | 2021-07-07 06:15 | NUR ---
CLOSING NOTE PATIENT IN BED, SLEEPING. NO S/S OF ACUTE DISTRESS. BREATHING IS EVEN AND UNLABORED. IV SITE PATENT, NO SIGNS OF INFILTRATION OR INFECTION NOTED. ALL NEEDS MET THROUGHOUT SHIFT. FALL, SAFETY PRECAUTIONS MAINTAINED THROUGHOUT SHIFT. WILL CONTINUE TO MONITOR UNTIL PATIENT CARE IS ENDORSED TO ONCOMING DAYSHIFT NURSE.
[2021-07-07 07:27] LABS: CALCIUM 8.3 mg/dL (8.4-11.0); CREATININE 0.58 mg/dL (0.55-1.30); PHOSPHORUS 3.7 mg/dL (2.7-4.5); POTASSIUM 4.2 mmol/L (3.5-5.1)
--- NOTE | 2021-07-07 07:44 | NUR ---
OPENING NOTE Patient currently resting in bed on room air. Respirations remain even and non-labored. IV site remains patent and saline-locked. Bed in lowest position and call light is within reach. Will continue to monitor.
[2021-07-07 07:50] LABS: BASOPHILS % (AUTO) 0.7 % (0.0-2.0); EOSINOPHILS # (AUTO) 0.2 K/uL (0.0-0.4); EOSINOPHILS % (AUTO) 9.7 % (0.0-4.0); HEMATOCRIT 33.7 % (36-48); HEMOGLOBIN 11.6 g/dL (12.0-16.0); LYMPHOCYTES # (AUTO) 0.5 K/uL (1.0-5.5); LYMPHOCYTES % (AUTO) 22.8 % (20.5-51.5); MEAN CORPUSCULAR HEMOGLOBIN 30 pg (27-31); MEAN CORPUSCULAR HGB CONC 35 % (32-36); MEAN CORPUSCULAR VOLUME 86 fL (79.0-98.0); MONOCYTES # (AUTO) 0.1 K/uL (0.0-1.0); MONOCYTES % (AUTO) 6.5 % (1.7-9.3); NEUTROPHILS # (AUTO) 1.3 K/uL (1.8-7.7); NEUTROPHILS % (AUTO) 60.3 % (40.0-70.0); RED BLOOD CELL COUNT(AUTO) 3.92 MIL/uL (4.2-6.2); RED CELL DISTRIBUTION WIDTH 15.3 % (9.0-15.0); WHITE BLOOD COUNT (AUTO) 2.2 K/uL (4.8-10.8)
[2021-07-07 08:00] VITALS: BP_SYST 108
[2021-07-07] MEDS: PROPRANOLOL HCL 10 MG TABLET (INDERAL) PO SCH (09:00)
[2021-07-07 09:01] LABS: PLATELET COUNT (AUTO) 34 K/uL (130-430)
--- NOTE | 2021-07-07 09:15 | NUR ---
ONCO/MELITA , DR CONDE WAS CALLED, RE: CRITICAL PLATELET LEVEL. SPOKE TO JANAK.
[2021-07-07] MEDS: LACTULOSE 20 GM/30 ML UDC PO SCH ×2 (09:20→12:41)
[2021-07-07] MEDS: PANTOPRAZOLE SODIUM 40 MG TAB PO SCH (09:23)
[2021-07-07] MEDS: SPIRONOLACTONE 50 MG TABLET (ALDACTONE) PO SCH (09:23)
[2021-07-07] MEDS: MULTIVITAMINS TAB 1 TABLET PO SCH (09:23)
[2021-07-07] MEDS: RIFAXIMIN 550 MG TABLET PO SCH (09:23)
[2021-07-07] MEDS: FUROSEMIDE 20 MG TABLET PO SCH (09:24)
--- NOTE | 2021-07-07 10:33 | NUR ---
CRITICAL LAB: Laboratory called with critical lab value PLT 34. Medical record number and patient name verified. Read back of values done. DR. CONDE notified of value. NO NEW orders given at this time. DR. CONDE SAID THERE IS NO NEED TO CALL MD FOR LOW PLATLET COUNT IN THE FUTURE, HE IS ALREADY AWARE OF THE TREND.
[2021-07-07 11:29] VITALS: BP_SYST 106
[2021-07-07 15:09] VITALS: BP_SYST 111
[2021-07-07 15:33] VITALS: BP_SYST 111
== END 2021-07-07 16:15 | disposition home or self-care (01) | DRG 443 ==
LOC: SED 12:31 → STU 18:16
PROVIDERS: ADMIT Internal Medicine Hospice and Palliative Medicine; ATTEND Internal Medicine Hospice and Palliative Medicine
DX: K72.90 Hepatic failure, unspecified without coma (principal); D69.6 Thrombocytopenia, unspecified; K74.60 Unspecified cirrhosis of liver; Z20.822 Contact with and (suspected) exposure to COVID-19; K75.81 Nonalcoholic steatohepatitis (NASH)
CPT/HCPCS: 36415; 70450-TC; 71045; 76376; 80048; 80053; 81000; 82140; 83735; 84100; 85025; 85610-TC; 85730-TC; 87081; 93005; 99285; G0378

== ENCOUNTER 2021-09-23 16:49 | Emergency (ER) | payer OTHER, MEDICAID, SELFPAY ==
[~2021-09-23] VITALS: Ht 149.9 cm; Wt 52.6 kg
[~2021-09-23 16:49] MED LIST changes: -FERR140T2 PO; -FURO20TA4 PO; -VITD2000 PO
[2021-09-23 17:01] VITALS: BP_SYST 119
[2021-09-23 18:34] LABS: BASOPHILS % (AUTO) 0.5 % (0.0-2.0); EOSINOPHILS # (AUTO) 0.2 K/uL (0.0-0.4); EOSINOPHILS % (AUTO) 10.1 % (0.0-4.0); HEMOGLOBIN 11.4 g/dL (12.0-16.0); LYMPHOCYTES # (AUTO) 0.5 K/uL (1.0-5.5); LYMPHOCYTES % (AUTO) 20.1 % (20.5-51.5); MEAN CORPUSCULAR HEMOGLOBIN 29 pg (27-31); MEAN CORPUSCULAR HGB CONC 34 % (32-36); MEAN CORPUSCULAR VOLUME 85 fL (79.0-98.0); MONOCYTES # (AUTO) 0.2 K/uL (0.0-1.0); MONOCYTES % (AUTO) 6.5 % (1.7-9.3); NEUTROPHILS # (AUTO) 1.5 K/uL (1.8-7.7); NEUTROPHILS % (AUTO) 62.8 % (40.0-70.0); RED BLOOD CELL COUNT(AUTO) 3.91 MIL/uL (4.2-6.2); RED CELL DISTRIBUTION WIDTH 15.6 % (9.0-15.0); WHITE BLOOD COUNT (AUTO) 2.4 K/uL (4.8-10.8)
[2021-09-23 18:39] LABS: CALCIUM 9.1 mg/dL (8.4-11.0); CREATININE 0.5 mg/dL (0.55-1.30); POTASSIUM 3.6 mmol/L (3.5-5.1)
[2021-09-23 18:48] LABS: ALBUMIN 2.8 g/dL (3.4-4.8)
[2021-09-23 19:04] LABS: PLATELET COUNT (AUTO) 33 K/uL (130-430)
[2021-09-23 20:13] LABS: INR 1.4 (0.8-1.2); PROTHROMBIN TIME 14.3 SECS (9.5-12.5)
[2021-09-23] MEDS ORDERED: LACTULOSE 20 GM/30 ML UDC PO ONE (21:30)
[2021-09-23 22:22] LABS: BILIRUBIN,URINE 1+ (NEGATIVE); BLOOD, URINE 3+ (NEGATIVE); COLOR,URINE YELLOW (YELLOW); GLUCOSE,URINE NEGATIVE (NEGATIVE); KETONES,URINE NEGATIVE (NEGATIVE); LEUKOCYTE ESTERASE ,URINE NEGATIVE (NEGATIVE); NITRITE, URINE NEGATIVE (NEGATIVE); PH,URINE 5.5 (5.0-8.0); PROTEIN URINE NEGATIVE (NEGATIVE); UROBILINOGEN,URINE 0.2 (0.2-1.0)
[2021-09-23 22:35] LABS: CLARITY/URINE SLIGHTLY HAZY (CLEAR)
[2021-09-23 22:39] LABS: BACTERIA,URINE FEW /HPF (None Seen); MUCUS,URINE None Seen /LPF (None Seen); WBC,URINE 0-3 /HPF (0-3)
[2021-09-23 23:15] VITALS: BP_SYST 112
== END 2021-09-23 23:15 | disposition home or self-care (01) ==
LOC: SED 16:49
DX: D69.6 Thrombocytopenia, unspecified (principal); E72.20 Disorder of urea cycle metabolism, unspecified; D64.9 Anemia, unspecified; K74.60 Unspecified cirrhosis of liver; Z79.899 Other long term (current) drug therapy
CPT/HCPCS: 36415; 71045; 80053; 81000; 82140; 83880; 84484; 85025; 85610-TC; 93005; 99284